=== PATIENT | female | born 1955 | race African-American/Black ===

== ENCOUNTER 2019-02-02 05:40 | Day surgery (SDC) | payer OTHER ==
[~2019-02-02] VITALS: Ht 162.6 cm; Wt 91.2 kg
--- NOTE | ~2019-02-02 | O ---
[facility] [place] [address] OPERATIVE REPORT Name: TIM PACHECO Jelena Room #: 150-1 [facility] M..#: [id number] Admission: 02/02/19 Attend Phys: Mike Alcaraz MD Discharge: Date of : 57 Report #: [id number] THIS REPORT FOR: //name// CC: Mike KIM DATE OF SERVICE: 02/02/2019 PREOPERATIVE DIAGNOSES: Deviated nasal septum with nasal airway obstruction, chronic maxillary and ethmoid sinusitis. POSTOPERATIVE DIAGNOSES: Deviated nasal septum with nasal airway obstruction, chronic maxillary and ethmoid sinusitis. OPERATIVE PROCEDURE: Nasal septoplasty, endoscopic bilateral maxillary antrostomies with removal of tissue, bilateral complete ethmoidectomies. ANESTHESIA: General by laryngeal mask. DESCRIPTION OF PROCEDURE: The patient was taken to the operating room and placed in a supine position. General anesthesia was induced by laryngeal mask. Once adequate general anesthesia was obtained, local nasal anesthesia was induced by submucoperichondrial injection of 1% lidocaine with 1:100,000 epinephrine and topical application of cocaine solution. The patient was then draped in a sterile manner. The patient had a nasal septal deviation to the left side. A hemitransfixion incision was placed on the left side of the nose and the mucoperichondrium and mucoperiosteum was elevated off of the cartilage. An incision was placed at the bony cartilaginous junction and a portion of cartilage and bone was removed from the midportion of the septum. There was a septal spur along the floor consisting of hypertrophic cartilage and a fracture of the maxillary crest. The cartilage was removed as a long strip and the maxillary crest was infractured and rongeured. After these maneuvers, the septum sat more in the midline. The hemitransfixion incision was then closed with 4-0 chromic suture and 4-0 plain mattress suture was placed as well. The nasal endoscope was used to visualize the left nasal cavity and the middle turbinate was deviated medially. The uncinate process was removed using the microdebrider and the natural opening of the maxillary sinus was located. It was enlarged in a posterior inferior manner by removing the soft fontanelle. An ethmoidectomy was performed by removing the ethmoidal bulla and then following the ethmoid air cells back to and through the basal lamella and then forward along the lamina papyracea and fovea ethmoidalis to complete the ethmoidectomy anteriorly. Surgiflo was placed into the ethmoid cavity and middle meatus for hemostasis. The exact same procedure was performed on the right side. The patient tolerated the procedure well. Blood loss was approximately 75 mL. The [address] [address] OPERATIVE REPORT Name: TIM PACHECO Room #: 150-1 [facility] M.R.#: [id number] Admission: 02/02/19 Attend Phys: Mike Alcaraz MD Discharge: Date of : 57 Report #: [id number] patient was then awoken and taken to the recovery room in stable condition for postoperative monitoring. By: [id number] Mike Alcaraz MD /nt
[~2019-02-02 05:40] MED LIST: ADVAIR 100-501 EACH INH; ASPIR 8181 M1 PO; FAMOTIDINE 40 M40 M1 PO; ISOSORBIDE DINI30 MG PO; LIPITOR80 MG PO; NEURONTIN100 MG PO; PLAVIX 75 MG TA75 MG PO; PROAIR HFA8.5 GM INH
--- NOTE | 2019-02-02 07:55 | H ---
[facility] [place] [address] HISTORY AND PHYSICAL Name: TIM PACHECO Room #: 150-1 [facility]..#: [id number] Admission: 02/02/19 Attend Phys: Mike Alcaraz MD Discharge: Date of : 57 Report #: [id number] THIS REPORT FOR: //name// CC: Mike COONEY [place] Procedure scheduled for 02/02/2019. HISTORY OF PRESENT ILLNESS: The patient has a deviated nasal septum and symptoms of chronic sinusitis. She has been treated with antibiotics and steroids on multiple occasions for nasal congestion, postnasal drainage and hoarseness. A CT scan of her sinuses shows a deviated nasal septum to the left side with nasal airway obstruction. She had significant mucous membrane thickening throughout the maxillary and ethmoid sinuses with some fluid in the sphenoid sinus as well. PAST MEDICAL HISTORY: Otherwise, significant for allergies, asthma, hypertension and previous heart attack. MEDICATIONS: Include aspirin, vitamins, albuterol, ProAir, Advair. ALLERGIES: She has no known drug allergies. PHYSICAL EXAMINATION: She has a deviated nasal septum to the left side with nasal congestion and drainage. IMPRESSION: Deviated nasal septum with chronic maxillary and ethmoid sinusitis. PLAN: Nasal septoplasty, endoscopic bilateral maxillary antrostomies, complete ethmoidectomies. <ELECTRONICALLY SIGNED> By: Mike Alcaraz MD 02/02/19 [id number] Mike Alcaraz MD /yousuf
[2019-02-02 08:53] VITALS: BP 145/94
[2019-02-02 09:57] VITALS: BP 145/94
== END 2019-02-02 10:35 | disposition home or self-care (01) ==
LOC: EDBD → OR 05:40 → TBA 05:41 → OR 10:35
DX: J34.2 Deviated nasal septum (principal); J32.0 Chronic maxillary sinusitis; J32.2 Chronic ethmoidal sinusitis; J34.89 Other specified disorders of nose and nasal sinuses; J45.909 Unspecified asthma, uncomplicated; I10 Essential (primary) hypertension; K21.9 Gastro-esophageal reflux disease without esophagitis; I25.2 Old myocardial infarction; F17.210 Nicotine dependence, cigarettes, uncomplicated; Z98.890 Other specified postprocedural states; Z79.899 Other long term (current) drug therapy; Z90.49 Acquired absence of other specified parts of digestive tract; Z86.73 Personal history of transient ischemic attack (TIA), and cerebral infarction without residual deficits; Z79.82 Long term (current) use of aspirin
CPT/HCPCS: 50010; 50101; 50386; 50398; 56524; 56528; 56635; 62110; 62900; 70005